=== PATIENT | female | born 1955 | race Two or more races ===

== ENCOUNTER 2020-04-24 20:09 | Emergency (ER) | payer OTHER ==
[~2020-04-24] VITALS: Ht 149.9 cm; Wt 95.3 kg
== END 2020-04-24 23:29 | disposition home or self-care (01) ==
LOC: ER 20:09
DX: K52.89 Other specified noninfective gastroenteritis and colitis (principal); Z03.818 Encounter for observation for suspected exposure to other biological agents ruled out; R11.2 Nausea with vomiting, unspecified; R19.7 Diarrhea, unspecified